=== PATIENT | female | born 1980 | race Caucasian/White ===

== ENCOUNTER 2022-07-03 16:56 | Emergency (ER) | payer MEDICARE, MEDICAID ==
[2022-07-03 17:21] VITALS: BP 127/82; PULSE 82
[2022-07-03] MEDS ORDERED: Ketorolac 30 MG/ML SDV IM ONE (17:32)
[2022-07-03] MEDS ORDERED: Promethazine 25 MG/ML SDV IM ONE (17:33)
[2022-07-03] MEDS ORDERED: Take Home: Doxycycline 100 MG Tab, 4 Tab Pack PO ONE (18:01)
[2022-07-03] MEDS ORDERED: Take Home: Phenazopyridine 95 MG Tab, 4 Tab Pack ONE (18:03)
[2022-07-03] MEDS ORDERED: Take Home: Promethazine 25 MG, 4 Tab Pack PO ONE (18:04)
== END 2022-07-03 18:18 | disposition home or self-care (01) ==
LOC: VM.ED 16:56
DX: N30.00 Acute cystitis without hematuria (principal); E11.9 Type 2 diabetes mellitus without complications; Z88.1 Allergy status to other antibiotic agents; Z91.013 Allergy to seafood; Z88.6 Allergy status to analgesic agent; Z88.0 Allergy status to penicillin; Z88.2 Allergy status to sulfonamides; Z79.899 Other long term (current) drug therapy; Z79.4 Long term (current) use of insulin; Z79.84 Long term (current) use of oral hypoglycemic drugs; Z90.49 Acquired absence of other specified parts of digestive tract
CPT/HCPCS: 74176; 81001; 87086; 96372; 99283; 99284; A9270-GY; J1885; J2550

== ENCOUNTER 2023-04-23 05:48 | Emergency (ER) | payer MEDICARE, MEDICAID ==
[2023-04-23 06:19] VITALS: BP 119/72; PULSE 88
[2023-04-23] MEDS ORDERED: fentaNYL 50 MCG/ML SDV IVPUSH ONE (06:19)
[2023-04-23] MEDS ORDERED: oxyCODONE 5 MG Tab PO ONE (06:20)
== END 2023-04-23 07:15 | disposition home or self-care (01) ==
LOC: VM.ED 05:48
DX: G89.18 Other acute postprocedural pain (principal); M25.571 Pain in right ankle and joints of right foot; J45.909 Unspecified asthma, uncomplicated; E11.9 Type 2 diabetes mellitus without complications; Z87.891 Personal history of nicotine dependence; Z88.1 Allergy status to other antibiotic agents; Z91.013 Allergy to seafood; Z88.5 Allergy status to narcotic agent; Z88.0 Allergy status to penicillin; Z79.899 Other long term (current) drug therapy; Z79.84 Long term (current) use of oral hypoglycemic drugs; Z98.890 Other specified postprocedural states
CPT/HCPCS: 96374; 99283; 99284; A9270; J3010

== ENCOUNTER 2023-04-26 17:10 | Emergency (ER) | payer MEDICARE, MEDICAID ==
[2023-04-26] MEDS ORDERED: Norepinephrine /D5W 4 MG/250 ML Premix ONE (17:16)
[2023-04-26] MEDS ORDERED: Sodium Bicarbonate 8.4% 50 MEQ/50 ML Syringe ONE ×5 (17:16→18:05)
[2023-04-26] MEDS ORDERED: EPINEPHrine 1:10,000 1 MG/10 ML Syringe ONE ×4 (17:16→17:57)
[2023-04-26] MEDS ORDERED: Sodium Chloride 0.9% 1,000 ML IV ONE ×2 (17:26→18:14)
[2023-04-26 17:27] LABS: HEMOGLOBIN 12.3 g/dL (12.0-16.0); MEAN CORPUSCULAR HEMOGLOBIN 30.1 pg (26.0-32.0); MEAN CORPUSCULAR HGB CONC 30.8 g/dL (32.0-36.0); PLATELET COUNT,PLT 119 x10^3/uL (130-400); RED BLOOD CELL COUNT 4.08 x10^6/uL (4.00-5.50)
[2023-04-26 17:31] LABS: WHITE BLOOD CELL COUNT,WBC 24.9 x10^3/uL (4.0-10.0)
[2023-04-26 17:38] LABS: BAND PERCENT MAN 8 % (0-6); LYMPHOCYTES ABSOLUTE MAN 5.2 x10^3/uL (1.0-4.8); LYMPHOCYTES PERCENT MAN 21 % (25-50); MONOCYTES ABSOLUTE MAN 0.5 x10^3/uL (0.0-0.8); MONOCYTES PERCENT MAN 2 % (2-11); NEUTROPHILS ABSOLUTE MAN 19.2 x10^3/uL (1.8-7.7); PLATELET COUNT ESTIMATE DECREASED; SEG NEUTROPHILS PERCENT MAN 69 % (50-80)
[2023-04-26] MEDS ORDERED: EPINEPHrine 1 MG/1 ML Amp ONE ×2 (17:39→20:27)
[2023-04-26] MEDS ORDERED: EPINEPHrine 1 MG in Sodium Chloride 0.9% 100 ML IV ONE ×2 (17:42→20:34)
[2023-04-26 17:43] LABS: INR 1.4 (2.0-3.5); PROTHROMBIN TIME 14.4 SEC (9.5-12.2); PTT,PARTIAL THROMBOPLSTIN TIME 62.8 SEC (23.6-33.6)
[2023-04-26 17:52] LABS: A/G RATIO 0.75; ALANINE AMINOTRANSFERASE,ALT 519 U/L (14-59); ALBUMIN 2.4 g/dL (3.4-5.0); ALKALINE PHOSPHATASE 78 U/L (46-116); ANION GAP 32.6 mmol/L (5-15); BILIRUBIN TOTAL 0.4 mg/dL (0.2-1.0); BLOOD UREA NITROGEN,BUN 15 mg/dL (7-18); C-REACTIVE PROTEIN 4.8 mg/dL (<=0.9); CALCIUM 8.5 mg/dL (8.5-10.1); CARBON DIOXIDE,CO2 13 mmol/L (21-32); CHLORIDE,CL 106 mmol/L (98-107); CREATININE 2.4 mg/dL (0.55-1.02); EST CRCL DRUG DOSING (CG) 25.26 mL/min; GLUCOSE RANDOM 228 mg/dL (70-99); POTASSIUM,K 3.6 mmol/L (3.5-5.1); PRO B-TYPE NATRIUR PEPT,BNPPRO 442 pg/mL (<=125); PROTEIN TOTAL,TP 5.6 g/dL (6.4-8.2); SODIUM,NA 148 mmol/L (136-145)
[2023-04-26 17:53] LABS: ESTIMATED GFR 25 mL/min (>=60); ETHANOL BLOOD MEDICAL < 3 mg/dL (0-3)
[2023-04-26 17:54] LABS: AMPHETAMINES SCREEN, URINE NEGATIVE (NEGATIVE); BARBITURATE SCREEN,URINE NEGATIVE (NEGATIVE)
[2023-04-26 17:55] LABS: BENZODIAZEPINES SCREEN,URINE POSITIVE (NEGATIVE); BUPRENORPHINE SCREEN,URINE NEGATIVE (NEGATIVE); COCAINE METABOLITES,URINE NEGATIVE (NEGATIVE); METHADONE SCREEN, URINE NEGATIVE (NEGATIVE); METHAMPHETAMINE SCREEN, URINE NEGATIVE (NEGATIVE); OXYCODONE SCREEN,URINE POSITIVE (NEGATIVE); PCP SCREEN,URINE NEGATIVE (NEGATIVE); THC SCREEN,URINE 50 NG/ML NEGATIVE (NEGATIVE)
[2023-04-26 17:59] LABS: BASE EXCESS ARTERIAL,POC -27 mmol/L ((-2)-3); HCO3 ARTERIAL,POC 7.7 mmol/L (21-28); O2 SATURATION ARTERIAL,POC 95.4 % (94-98); PCO2 ARTERIAL,POC 54 mmHg (35-48); PH ARTERIAL,POC 6.77 pH (7.35-7.45); PO2 ARTERIAL,POC 149 mmHg (83-108); TCO2 ARTERIAL,POC 8.7 mmol/L (22-29)
[2023-04-26 18:13] LABS: ASPARTATE AMNIOTRANSFERASE,AST 664 U/L (15-37)
== END 2023-04-26 21:25 | disposition expired ==
LOC: VM.ED 17:10
DX: I46.9 Cardiac arrest, cause unspecified (principal); J45.909 Unspecified asthma, uncomplicated; E11.9 Type 2 diabetes mellitus without complications; Z88.1 Allergy status to other antibiotic agents; Z91.013 Allergy to seafood; Z88.5 Allergy status to narcotic agent; Z88.0 Allergy status to penicillin; Z88.2 Allergy status to sulfonamides; Z79.4 Long term (current) use of insulin; Z79.899 Other long term (current) drug therapy
CPT/HCPCS: 31500; 36600; 71045; 80053; 80305-QW; 80307; 82803; 83880; 84484; 85025; 85610; 85730; 86140; 92950; 94002; 96361; 96365; 96375; 96376; 99285-25; J0171; J3490; J7030